=== PATIENT | female | born 1970 | race Caucasian/White ===

== ENCOUNTER 2025-01-19 06:50 | Day surgery (SDC) | payer OTHER ==
[2025-01-19] MEDS ORDERED: Propofol 200 MG/20 ML SDV IV ONE (06:51)
[2025-01-19] MEDS ORDERED: Sodium Chloride 0.9% 10 ML Syringe FLUSH PRN (07:00)
[2025-01-19] MEDS: Lactated Ringers 1,000 ML IV SCH (08:08)
== END 2025-01-19 10:08 | disposition home or self-care (01) ==
LOC: FB.SDS 06:50
PROVIDERS: ATTEND Surgery
DX: Z12.11 Encounter for screening for malignant neoplasm of colon (principal); K63.5 Polyp of colon; K57.30 Diverticulosis of large intestine without perforation or abscess without bleeding; Z88.8 Allergy status to other drugs, medicaments and biological substances; Z79.899 Other long term (current) drug therapy; Z86.0101 Personal history of adenomatous and serrated colon polyps
CPT/HCPCS: 00811; 88305; A9270-GY; J2003; J2704; J7120